=== PATIENT | male | born 1945 | race Caucasian/White ===

== ENCOUNTER 2023-06-30 08:33 | Outpatient (AMB) | payer MEDICARE, SELFPAY ==
[2023-06-30 08:38] VITALS: BP 130/72; PULSE 60; TEMP 36.4; O2SAT 98; BMI 27.9
--- NOTE | 2023-06-30 08:38 | AM.OFFWIN_ITS ---
Intake Vital Signs 06/30/23 08:38 Height 5 ft 9 in Weight 189 lb BMI 27.9 BP 130/72 Blood Pressure Location Lt brachial Position Sitting Pulse 60 Pulse Source Pulse Oximeter Temp 97.6 F Temp Source Temporal Artery Scan Pulse Oximetry (%) 98 Oxygen Delivery Method Room Air Intake Visit Reasons: EST/fell and inj left side ribs (lobby) Intake Note: pt is here today for fell and injury to lft side ribs started yesterday Patient Tobacco Use Status: Never used Tobacco Allergies No Known Allergies Allergy (Verified 06/30/23 08:44) Do you need a note to return to daycare/school/sports/work: No HPI HPI Comments History of Present Illness Details This is a 77-year-old male who presents to the walk-in clinic complaining of left-sided rib pain status post mechanical fall that occurred 4 days ago. Patient states he was doing some work pushing some heavy objects when he felt a ?twinge? in his back causing him to fall on his left side. Patient's daughter has been giving him some muscle relaxants as she believed it may have been a muscle spasm; however, these have not been helping. He denies any shortness a breath or difficulty breathing. He states that the pain is worsened with coughing, laughing, sneezing, etc.. PFSH Social History Patient Tobacco Use Status: Never used Tobacco Review of Systems Const All systems reviewed & are unremarkable except as noted in HPI and below Reports no additional complaints Eyes Reports no additional complaints ENT Reports no additional complaints Card Reports no additional complaints Resp Reports no additional complaints GI Reports no additional complaints Reports no additional complaints Musc Reports no additional complaints Skin/Breast Reports system reviewed and no additional complaints, except as documented Neuro Reports no additional complaints Psych Reports no additional complaints Endo Reports no additional complaints Arun/Lymph Reports no additional complaints Aller/Immun Reports no additional complaints Physical Exam Vital Signs: Last Vital Signs Temp 97.6 F 06/30/23 08:38 Pulse 60 06/30/23 08:38 BP 130/72 06/30/23 08:38 Pulse Ox 98 06/30/23 08:38 Oxygen Delivery Method Room Air 06/30/23 08:38 BMI result Body Mass Index 27.9 Const Other: Vital signs reviewed. Constitutional: Non-toxic appearing. No acute distress. Well-developed and well-nourished. HEENT: Normocephalic and atraumatic. Skin: Warm and dry. No rashes or lesions noted. No ecchymosis of the left chest wall appreciated. Neck: Full and painless range of motion. No cervical lymphadenopathy. Cardio: Regular rate. Pulmonary: No respiratory distress. No accessory muscle usage. Clear to auscultation bilaterally without wheezing, crackles, or rhonchi. Gastrointestinal: Soft, nontender, and nondistended in all 4 quadrants. Normoactive bowel sounds in all 4 quadrants. Genitourinary: No CVA tenderness. Musculoskeletal: Normal range of motion in joints throughout the body. He has tenderness to palpation of the lateral/posterior left-sided ribs. Neuro: Alert and oriented x4. Cranial nerves 2-12 grossly intact. No focal deficits appreciated. Psych: Normal mood and affect. Assessment & Plan Assessment & Plan (1) Rib pain on left side: Code(s): R07.81 - Pleurodynia Plan: This is a 77-year-old male who presented to the walk-in clinic complaining of left-sided rib pain status post mechanical fall that occurred 4 days ago. Differential diagnosis includes rib fracture versus rib contusion versus interc ostal/paraspinal muscular sprain/strain. X-ray of the left ribs with chest x- ray was obtained, which was negative for acute displaced rib fracture or acute cardiopulmonary process on my read although the official read is still pending. Patient very likely has a rib contusion. Patient was educated to take deep breaths/pulmonary toilet in order to avoid pneumonia/atelectasis as well as to brace himself with laughing, coughing, and sneezing. Patient was provided with an incentive spirometer. Recommended symptomatic management including acetaminophen/ibuprofen as needed for pain management as long as he has no medical contraindications, ice to the area, and lidocaine patches to the area. Patient was instructed to follow-up here or proceed to the emergency room if he were to develop difficulty breathing, hemoptysis, productive cough, or fever/chills. Patient verbalizes understanding and he is in agreement with the plan. (2) Constipation: Code(s): K59.00 - Constipation, unspecified Qualifiers: Constipation type: unspecified constipation type Qualified Code(s): K59.00 - Constipation, unspecified Plan: Additionally, the patient had complained of constipation and has not had a bowel movement in the past 3 days. His abdomen is slightly firm although nontender and nondistended. He has normoactive bowel sounds in all 4 quadrants. He denies any abdominal pain or nausea/vomiting. I recommended patient take [id number] laxatives including docusate, senna, or bisacodyl. Patient verbalizes understanding and he is in agreement with the plan. Orders: Orders XR ribs LT min 3V w CXR1V Today R07.81 - Pleurodynia Coding Level of Care Code Est Pt Level 3 (44311) Diagnoses Rib pain on left side R07.81 Constipation, unspecified constipation type K59.00 Constipation type: unspecified constipation type
== END 2023-06-30 10:20 | disposition home or self-care (01) ==
PROVIDERS: PCP Internal Medicine; Visit Provider Physician Assistant Medical
DX: R07.81 Pleurodynia (principal); K59.00 Constipation, unspecified
CPT/HCPCS: 99213

== ENCOUNTER 2023-06-30 09:00 | Outpatient (REF) | payer MEDICARE, SELFPAY ==
--- NOTE | ~2023-06-30 | XR_ITS ---
EXAMINATION: XR RIBS, LEFT CLINICAL INFORMATION: Pleurodynia COMPARISON: None available. TECHNIQUE: 4 views of the left ribs were obtained. FINDINGS: Slight left basilar atelectasis. No pneumothorax. Trachea is midline. Cardiac mediastinal silhouette is not enlarged. Aorta demonstrates mild tortuosity. No large pleural effusion. Soft tissues are unremarkable. Degenerative changes of the thoracolumbar spine. Minimally displaced fracture of the left posterior lateral 10th rib. XR/XR ribs LT min 3V w CXR1V IMPRESSION: 1. Slight left basilar atelectasis. 2. Minimally displaced fracture of the left posterior lateral 10th rib.
== END 2023-06-30 09:01 | disposition home or self-care (01) ==
LOC: HO.HMGCX 09:00
PROVIDERS: Visit Provider Physician Assistant Medical
DX: R07.81 Pleurodynia (principal)
CPT/HCPCS: 71101